=== PATIENT | male | born 1995 | race African-American/Black ===

== ENCOUNTER 2016-09-19 16:41 | Emergency (ER) | payer OTHER ==
[~2016-09-19] VITALS: Ht 180.3 cm; Wt 90.5 kg
[~2016-09-19 16:41] MED LIST: NPR500 PO
[2016-09-19 16:49] VITALS: TEMP 36.6; O2SAT 98; Ht 180.3 cm; Wt 90.5 kg
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
[2016-09-19 17:44] LABS: URINE APPEARANCE CLEAR (CLEAR); URINE BILIRUBIN NEG (NEG); URINE COLOR YELLOW; URINE NITRITE NEG (NEG); URINE PH 5.5 (4.5-7.5); UROBILINOGEN NEG (NEG)
[2016-09-19 17:44] LABS: BASO % 0.2 %; BASO ABS # 0.01 K/uL (0-0.2); COMPLETE YES; EOS % 0.2 %; HEMATOCRIT 42.8 % (42-52); IG% 0.2 %; LYMPH % 26.1 %; LYMPH ABS # 1.23 K/uL (1.2-3.4); MEAN CORPUSCULAR HEMOGLOBIN 30.7 pg (25-34); MEAN CORPUSCULAR HGB CONC 35.3 g/dl (32-36); MEAN PLATELET VOLUME 10.5 fL (7.4-10.4); MONO % 10.4 %; NEUT % 62.9 %; PLATELET COUNT 195 K/uL (130-400); RED BLOOD COUNT 4.92 M/uL (4.7-6.1); WHITE BLOOD COUNT 4.72 K/uL (4.8-10.8)
[2016-09-19 17:45] LABS: BUN/CREATININE RATIO 11.3 (10-20); CALCIUM 8.9 mg/dl (8.5-10.1); CREATININE 1.2 mg/dl (0.60-1.40); POTASSIUM 3.6 mmol/L (3.5-5.1)
[2016-09-19 17:47] LABS: MANUAL MICROSCOPIC REQUIRED? NO; REVIEW REQ? NO
[2016-09-19 18:36] LABS: BENZODIAZEPINE, URINE NEG (NEG); COCAINE,URINE NEG (NEG); PHENCYCLIDINE, URINE NEG (NEG)
[2016-09-19 19:30] VITALS: BP 133/87; PULSE 90; O2SAT 97
== END 2016-09-19 19:30 | disposition home or self-care (01) ==
LOC: EDBD 16:41 → C.EDB 16:42
DX: F10.929 Alcohol use, unspecified with intoxication, unspecified (principal)

== ENCOUNTER 2016-11-11 16:49 | Emergency (ER) | payer OTHER ==
[~2016-11-11] VITALS: Ht 182.9 cm; Wt 78.7 kg
[2016-11-11 16:51] VITALS: TEMP 36.6; Ht 182.9 cm; Wt 78.7 kg
[2016-11-11] MEDS ORDERED: HALOPERIDOL LACTATE 5 MG/ML 1 ML VIAL IM STA (17:46)
[2016-11-11] MEDS ORDERED: LORAZEPAM 2 MG/ML 1 ML VIAL IM STA (17:46)
[2016-11-11] MEDS ORDERED: RISP1TAB18 PO (17:47)
[2016-11-11] MEDS ORDERED: LORAZEPAM 1 MG TAB SL STA (17:48)
[2016-11-11 17:55] LABS: BASO % 0.2 %; BASO ABS # 0.01 K/uL (0-0.2); COMPLETE YES; EOS % 1.2 %; IG% 0.4 %; LYMPH % 32.9 %; LYMPH ABS # 1.71 K/uL (1.2-3.4); MEAN CORPUSCULAR HEMOGLOBIN 30.2 pg (25-34); MEAN CORPUSCULAR HGB CONC 34.8 g/dl (32-36); MEAN PLATELET VOLUME 10.4 fL (7.4-10.4); MONO % 9.2 %; NEUT % 56.1 %; PLATELET COUNT 232 K/uL (130-400); RED BLOOD COUNT 5.29 M/uL (4.7-6.1); WHITE BLOOD COUNT 5.19 K/uL (4.8-10.8)
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
[2016-11-11 18:16] LABS: URINE APPEARANCE CLEAR (CLEAR); URINE BILIRUBIN NEG (NEG); URINE COLOR YELLOW; URINE NITRITE NEG (NEG); URINE PH 8.5 (4.5-7.5); URINE SPECIFIC GRAVITY 1.024 (1.000-1.030); UROBILINOGEN NEG (NEG)
[2016-11-11 18:17] LABS: CALCIUM 8.4 mg/dl (8.5-10.1); CREATININE 1.1 mg/dl (0.60-1.40); POTASSIUM 4.1 mmol/L (3.5-5.1)
[2016-11-11 18:19] LABS: MANUAL MICROSCOPIC REQUIRED? NO; REVIEW REQ? NO
[2016-11-11 18:20] LABS: SULFASALICYLIC ACID NEG (NEG)
[2016-11-11 18:27] LABS: THYROID STIMULATING HORMONE 0.657 uIu/ml (0.300-4.500)
[2016-11-11 18:41] LABS: BENZODIAZEPINE, URINE NEG (NEG); COCAINE,URINE NEG (NEG); PHENCYCLIDINE, URINE NEG (NEG)
[2016-11-11] MEDS ORDERED: LORAZEPAM 2 MG/ML 1 ML VIAL ONE (22:59)
[2016-11-11] MEDS ORDERED: HALOPERIDOL LACTATE 5 MG/ML 1 ML VIAL ONE (22:59)
[2016-11-11 23:45] VITALS: O2SAT 97
--- NOTE | 2016-11-12 03:05 | EMERGENCY ROOM VISIT NOTE ---
ED Visit Note First contact with patient: 02:25 Patient turned over to me at 2 AM pending disposition and placement. Patient is under 3 O2, required Haldol and Ativan prior. Currently is in stable condition
[2016-11-12] MEDS ORDERED: ACETAMINOPHEN 325 MG TAB ONE (07:55)
[2016-11-12] MEDS ORDERED: ACETAMINOPHEN 325 MG TAB PO STA (08:04)
[2016-11-12] MEDS ORDERED: ALUMINUM/MAGNESIUM SUSP 30 ML UDC PO STA (09:40)
[2016-11-12] MEDS ORDERED: RISPERIDONE 1 MG TAB PO SCH (16:00)
--- NOTE | 2016-11-12 16:29 | EMERGENCY ROOM VISIT NOTE ---
ED Visit Note First contact with patient: 16:27 I received this patient at change of shift signout from Dr. Callahan. Please see her note for continuation of care. The patient originally arrived at our facility for a mental health evaluation. The patient was having an acute psychotic episode. He doesn't a history of similar episodes in the past. He was noncompliant with medications. He required a 302 petition. He was medically cleared prior to my arrival. The patient was evaluated by the mental health delegate and a long bed search was underway when I took over the patient's care. The patient was offered his outpatient antipsychotic medication but he refused. He was evaluated by the can help delegate and was accepted at the [facility] for further inpatient treatment. Transfer paperwork was filled out by myself.
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
[2016-11-12 18:35] VITALS: BP 121/71; PULSE 60; O2SAT 99
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
== END 2016-11-12 18:35 ==
LOC: C.EDB 16:51 → C.EDA 11-12 18:35
DX: F39 Unspecified mood [affective] disorder (principal); F17.200 Nicotine dependence, unspecified, uncomplicated; Z79.899 Other long term (current) drug therapy

== ENCOUNTER 2016-11-27 16:07 | Emergency (ER) | payer OTHER ==
[~2016-11-27] VITALS: Ht 182.9 cm; Wt 89.4 kg
[~2016-11-27 16:07] MED LIST changes: -NPR500 PO; +RISP1TAB18 PO
[2016-11-27 16:14] VITALS: TEMP 37.2; Ht 182.9 cm; Wt 89.4 kg
--- NOTE | 2016-11-27 16:54 | EMERGENCY ROOM VISIT NOTE ---
History Report prepared by Reginaldo: Airam Alicea Under the Supervision of: Dr. Luis Wilburn M.D. First contact with patient: 16:30 Chief Complaint: MENTAL HEALTH EVALUATION Stated Complaint: TENDERNESS IN STOMACH History of Present Illness The patient is a 21 year old male who presents to the Emergency Room with complaints of constant back pain beginning a few days ago. The patient reports that he has been doing yoga recently and his back has been feeling weird. He states that he "just wanted to come in and make sure his back looks like a normal back". He notes that he also has been noticing that there is "blood moving in my belly". Source of History: patient Onset: a few days ago Position: back Quality: other ("weird feeling") Timing: constant Modifying Factors (Worsening): other (yoga) Note: He notes that it feels like there is blood moving in his belly. Review of Systems See HPI for pertinent positives & negatives. A total of 10 systems reviewed and were otherwise negative. Past Medical & Surgical Medical Problems: (1) No known health problems (2) Unspecified episodic mood disorder Family History No pertinent family history stated. Social History Smoking Status: Current Every Day Smoker Alcohol Use: occasionally Marital Status: single Occupation Status: [employer] Current/Historical Medications Scheduled Risperidone (Risperdal), 1.5 MG PO DAILY Allergies Coded Allergies: No Known Allergies (Unverified , 11/27/16) Physical Exam Vital Signs Date Time Temp Pulse Resp B/P Pulse Ox O2 Delivery O2 Flow Rate FiO2 11/27/16 17:01 92 20 101/50 96 Room Air 11/27/16 16:14 37.2 96 20 100/48 96 Room Air Physical Exam GENERAL: Patient is a healthy-appearing well-nourished. He has no loss of bladder control. HEAD: Normocephalic atraumatic EYES: Ocular movements intact pupils equal and react to light OROPHARYNX mucous membranes are moist no exudates present no erythema or edema present NECK: Supple no nuchal rigidity CHEST: Good equal expansion LUNGS: Clear and equal to auscultation CARDIAC: Normal S1 and S2 ABDOMEN: Soft nontender no guarding BACK: No CVA tenderness EXTREMITIES: No pain upon palpation normal muscle strength in all groups no clubbing cyanosis or edema. NEURO: Patient is following commands is answering questions appropriately. Alert and oriented x3 Cranial Nerves 2-12 grossly intact. Patient can walk on tip toes and heels. No saddle anesthesia. Medical Decision & Procedures Laboratory Results Labs reviewed by ED physician. ED Course 1640: Past medical records reviewed. The patient was evaluated in room A6. A complete history and physical examination was performed. 1649: Upon reexamination the patient is hemodynamically stable. I discussed results and treatment plan with the patient. He verbalizes agreement and understanding. The patient is ready for discharge. Medical Decision Differential diagnosis: Etiologies such as musculoskeletal, disc herniation, fracture, aortic disease, metastatic disease, cord compression, discitis, infection, renal colic, gastrointestinal, acute exacerbation of chronic back pain, sciatica, cauda equina, as well as others were entertained. This is a 21-year-old male who presents emergency department complaining of low back pain. The patient is refusing x-rays in the emergency department and just wants a medical opinion as to his back pain. I will note that the patient is able to walk on his tiptoes and his heels. He has no evidence of saddle anesthesia and he is has no loss of bowel or bladder control. The patient is requesting to be food in the emergency department and seems more obsessed with food than anything else. I do believe he is safe enough to be discharged home for follow-up with orthopedics. Patient was in agreement with the treatment plan. Impression Primary Impression: Low back pain Scribe Attestation The scribe's documentation has been prepared under my direction and personally reviewed by me in its entirety. I confirm that the note above accurately reflects all work, treatment, procedures, and medical decision making performed by me. Departure Information Dispostion Home / Self-Care Referrals No Doctor, Assigned (PCP) Forms HOME CARE DOCUMENTATION FORM, IMPORTANT VISIT INFORMATION Patient Instructions Back Safety Basics Good Posture, Basics Back Healthy Spine, ED Back Care Tips, Exercises Back Leg Pull, Exercises Back Leg Reach, Exercises Back Lower Back Stretch, Exercises Back Seated Rotation, My [facility] Additional Instructions Follow up with DR Mccabe's office Take 600 mg Ibuprofen every 6 hours You have been examined and treated today on an emergency basis only. This is not a substitute for, or an effort to provide, complete comprehensive medical care. It is impossible to recognize and treat all injuries or illnesses in a single emergency department visit. It is therefore important that you follow up closely with [facility]. Call as soon as possible for an appointment. Thank you for your time and consideration. I look forward to speaking with you again soon. Please don't hesitate to call us if you have any questions. Problem Qualifiers Primary Impression: Low back pain Chronicity: acute Back pain laterality: bilateral Sciatica presence: without sciatica Qualified Codes: M54.5 - Low back pain
[2016-11-27 17:01] VITALS: BP 101/50; PULSE 92; O2SAT 96
== END 2016-11-27 17:01 | disposition home or self-care (01) ==
LOC: C.EDB 16:08 → C.EDA 17:01
DX: M54.5 Low back pain (principal); F17.200 Nicotine dependence, unspecified, uncomplicated; Z79.899 Other long term (current) drug therapy